=== PATIENT | male | born 1950 | race Two or more races ===

== ENCOUNTER 2024-04-10 11:30 | Inpatient (IN) | payer OTHER ==
[~2024-04-10] VITALS: Ht 170.2 cm; Wt 69.9 kg
[~2024-04-10 11:30] MED LIST: AMBIEN10 MG PO; CIPRO750 MG PO; Colace 100MG PO; NEURONTIN PO; PERCOCET 5/3251 TAB PO
[2024-04-13] MEDS ORDERED: SYNTHROID50 MCG (12:26)
[2024-04-13] MEDS ORDERED: TAMS0.4C PO (12:27)
[2024-04-13] MEDS ORDERED: PROTONIX40 MG PO (12:27)
[2024-04-13] MEDS ORDERED: PLETAL PO (12:28)
[2024-04-13] MEDS ORDERED: GRALISE600 MG PO (12:28)
[2024-04-16] MEDS ORDERED: VANCOMYCIN HCL 1,000 MG VIAL ONE ×2 (14:49→16:00)
[2024-04-16] MEDS ORDERED: ACETAMINOPHEN-1 EAC2 PO (15:21)
[2024-04-16] MEDS ORDERED: COLACE100 MG PO (15:22)
[2024-04-16] MEDS ORDERED: MEDROLPACK PO (15:22)
[2024-04-16] MEDS ORDERED: ZOFRAN8 MG PO (15:22)
[2024-04-16] MEDS ORDERED: PROMETHAZINE HCL 50 MG/ML AMPUL IM PRN (15:30)
[2024-04-16] MEDS ORDERED: ENALAPRILAT DIHYDRATE 1.25 MG/ML VIAL IV PRN (15:30)
[2024-04-16] MEDS ORDERED: 0.9 % SODIUM CHLORIDE 1,000 ML IV SCH (15:30)
[2024-04-16] MEDS ORDERED: METHYLPREDNISOLONE SOD SUCC 125 MG VIAL ONE ×2 (15:53→18:36)
[2024-04-16] MEDS ORDERED: ISOPROPYL ALCOHOL 30 ML OUNCE TOP ONE (15:54)
[2024-04-16] MEDS ORDERED: HEMOSTATIC MATRIX WITH THROMBIN KIT TOP ONE (15:55)
[2024-04-16] MEDS ORDERED: DOCUSATE SODIUM 100MG CAP PO SCH (17:00)
[2024-04-16] MEDS ORDERED: MORPHINE SULFATE 4 MG/ML CARTRIDGE IV SCH (17:00)
[2024-04-16] MEDS ORDERED: FAMOtidine 20 MG TABLET PO SCH (17:00)
[2024-04-16] MEDS ORDERED: METHYLPREDNISOLONE SOD SUCC 125 MG VIAL IV SCH (17:00)
[2024-04-16] MEDS ORDERED: CEFAZOLIN SODIUM 1,000 MG in 0.9 % SODIUM CHLORIDE 50 ML IV SCH (17:00)
[2024-04-16] MEDS ORDERED: THROMBIN,HU/FIBRINOGEN/CALCIUM 4 ML SYRINGE TOP ONE (17:17)
[2024-04-16] MEDS ORDERED: METHYLPREDNISOLONE ACETATE 80 MG/ML VIAL ONE (17:34)
[2024-04-16] MEDS ORDERED: MORPHINE SULFATE 4 MG/ML VIAL IV ONE (18:30)
[2024-04-16] MEDS ORDERED: CEFAZOLIN SODIUM 1,000 MG VIAL ONE (18:37)
[2024-04-16] MEDS ORDERED: ONDANSETRON HCL 2 MG/ML VIAL ONE (19:18)
[2024-04-16] MEDS ORDERED: ACETAMINOPHEN 500 MG GEL..CAP PO SCH (20:00)
[2024-04-16] MEDS ORDERED: VANCOMYCIN HCL 1,000 MG VIAL IV SCH (21:00)
[2024-04-16 21:28] VITALS: BP 150/73; O2SAT 98
[2024-04-16 21:52] VITALS: O2SAT 95
[2024-04-17] VITALS (7 sets, daily range): BP systolic 128–144; BP diastolic 70–76; O2SAT 90–100
[2024-04-17] MEDS ORDERED: SODIUM CHLORIDE 0.45 % 1,000 ML IV SCH
[2024-04-17] MEDS ORDERED: LEVOTHYROXINE SODIUM 75 MCG TABLET PO SCH (06:00)
[2024-04-17] MEDS ORDERED: ACETAMINOPHEN WITH CODEINE 1 UDTAB TABLET PO PRN (06:00)
[2024-04-17] MEDS ORDERED: OxyCODONE HCL 5 MG TABLET (ROXICODONE) PO PRN (06:01)
[2024-04-17] MEDS ORDERED: VANCOMYCIN HCL 1,000 MG VIAL ONE (07:26)
[2024-04-17] MEDS ORDERED: TAMSULOSIN HCL 0.4 MG CAP PO SCH (09:00)
== END 2024-04-17 13:12 | disposition home or self-care (01) | DRG 473 ==
LOC: O/R 04-16 07:10 → SURH 04-16 07:10 → SURG 04-16 09:45 → SURH 04-16 18:48
PROVIDERS: ADMIT Orthopaedic Surgery Orthopaedic Surgery of the Spine; ATTEND Orthopaedic Surgery Orthopaedic Surgery of the Spine
PROC: 0RT30ZZ Resection of Cervical Vertebral Disc, Open Approach (ICD-10-PCS; 2024-04-16)
PROC: 07DS0ZZ Extraction of Vertebral Bone Marrow, Open Approach (ICD-10-PCS; 2024-04-16)
PROC: 4A11X4G Monitoring of Peripheral Nervous Electrical Activity, Intraoperative, External Approach (ICD-10-PCS; 2024-04-16)
PROC: 0RG20A0 Fusion of 2 or more Cervical Vertebral Joints with Interbody Fusion Device, Anterior Approach, Anterior Column, Open Approach (ICD-10-PCS; principal; 2024-04-16 17:15)
DX: M50.01 Cervical disc disorder with myelopathy, high cervical region (principal); Z98.1 Arthrodesis status; M48.02 Spinal stenosis, cervical region

== ENCOUNTER 2024-04-13 13:01 | Outpatient (CLI) | payer OTHER ==
[~2024-04-13 13:01] MED LIST changes: +GRALISE600 MG PO; +PLETAL PO; +PROTONIX40 MG PO; +SYNTHROID50 MCG; +TAMS0.4C PO
== END 2024-04-13 13:04 | disposition home or self-care (01) ==
LOC: RAD 13:01
PROVIDERS: ATTEND Orthopaedic Surgery Orthopaedic Surgery of the Spine
DX: M50.00 Cervical disc disorder with myelopathy, unspecified cervical region (principal); M51.360 Other intervertebral disc degeneration, lumbar region with discogenic back pain only